=== PATIENT | male | born 1990 | race Caucasian/White ===

== ENCOUNTER 2023-02-20 23:51 | Emergency (ER) | payer MEDICAID ==
[~2023-02-20] VITALS: Ht 185.4 cm; Wt 158.8 kg
[2023-02-21 00:28] VITALS: PULSE 97; RESP 20; TEMP 97; O2SAT 98
--- NOTE | 2023-02-21 00:41 | NUR ---
pt went to lobby
--- NOTE | 2023-02-21 02:01 | NUR ---
pt ambulated to bed 03
--- NOTE | 2023-02-21 02:20 | NUR ---
pt resting on bed, A/ox4. not in distress. on monitor, ' call light within reach. pt instructed on how to use call light. pt returned demonstration. all needs met at this time. bed locked in lowest position. side rails x2 for safety. no standard id wrist band available. noted by charge nurse. verified pt name and date of when doing bedside and giving medication
[2023-02-21] MEDS ORDERED: oxyCODONE/APAP 5/325 MG 1 TAB TAB PO ONE (03:00)
[2023-02-21] MEDS ORDERED: SULFAMETH/TRIMETH DS 800/160MG 1 TAB PO ONE (03:00)
--- NOTE | 2023-02-21 04:00 | NUR ---
pt reports relief of pain and feel comfortable.
--- NOTE | 2023-02-21 04:12 | NUR ---
ermd at bedside performing incision and drainage
[2023-02-21] MEDS ORDERED: SULF-59 PO (04:28)
[2023-02-21] MEDS ORDERED: IBUP-2213 PO (04:28)
[2023-02-21] MEDS ORDERED: ACET-10509 PO (04:29)
[2023-02-21 04:40] VITALS: BP 130/84; PULSE 94; RESP 20; TEMP 97; O2SAT 98
--- NOTE | 2023-02-21 04:40 | NUR ---
Patient discharged with v/s stable. Written and verbal after care instructions given and explained. Patient alert, oriented and verbalized understanding of instructions. Ambulatory with steady gait. All questions addressed prior to discharge. ID band removed. Patient advised to follow up with PMD. Rx given to pt. Patient educated on indication of medication including possible reaction and side effects. Opportunity to ask questions provided and answered.
[2023-02-21] MEDS ORDERED: HYDR-5191 PO (16:51)
== END 2023-02-21 04:40 | disposition home or self-care (01) ==
LOC: MED 23:51
DX: L05.01 Pilonidal cyst with abscess (principal); F12.90 Cannabis use, unspecified, uncomplicated; Z79.899 Other long term (current) drug therapy; Z90.49 Acquired absence of other specified parts of digestive tract
CPT/HCPCS: 10080; 99284